=== PATIENT | male | born 1950 | race Two or more races ===

== ENCOUNTER 2016-10-14 16:40 | Emergency (ER) | payer OTHER ==
[~2016-10-14] VITALS: Ht 170.2 cm; Wt 68.0 kg
--- NOTE | 2016-10-14 17:20 | NUR ---
EKG DONE GIVEN TO MD ARTHUR
--- NOTE | 2016-10-14 17:20 | NUR ---
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 Pt has no complaints, states he slipped out of his wheelchair and fell on buttocks, denies pain, CP, SOB, dizziness, n/v, no distress noted.
[2016-10-14] MEDS ORDERED: IV NORMAL SALINE 500 ML BAG IV ONE (17:30)
[2016-10-14] MEDS ORDERED: PANT40TA4 PO (17:42)
[2016-10-14] MEDS ORDERED: ACET-2154 PO (17:42)
[2016-10-14] MEDS ORDERED: OXYC10TA49 PO (17:42)
[2016-10-14] MEDS ORDERED: DOCU-141 PO (17:42)
[2016-10-14] MEDS ORDERED: AMLO10TA2 PO (17:42)
[2016-10-14] MEDS ORDERED: MAGN400O6 PO (17:42)
[2016-10-14] MEDS ORDERED: FERR-58 PO (17:42)
[2016-10-14] MEDS ORDERED: HYDR-4077 PO (17:42)
[2016-10-14] MEDS ORDERED: ZOLP5TAB2 PO (17:42)
[2016-10-14] MEDS ORDERED: OXYC5TAB3 PO (17:42)
[2016-10-14] MEDS ORDERED: CHOL400T PO (17:42)
[2016-10-14 18:06] LABS: BASOPHILS # (AUTO) 0.1 K/uL (0.0-8.0); BASOPHILS % (AUTO) 0.5 % (0.0-2.0); EOSINOPHILS # (AUTO) 0.3 K/uL (0.0-0.7); EOSINOPHILS % (AUTO) 2.3 % (0.0-7.0); HEMATOCRIT 43.1 % (40-50); HEMOGLOBIN 14.4 G/DL (14.0-18.0); LYMPHOCYTES # (AUTO) 0.8 K/UL (0.8-4.8); LYMPHOCYTES % (AUTO) 5.4 % (20.5-51.5); MEAN CORPUSCULAR HEMOGLOBIN 30.2 UUG (27.0-31.0); MEAN CORPUSCULAR HGB CONC 34 g/dL (32.0-37.0); MEAN CORPUSCULAR VOLUME 89.9 FL (82.0-92.0); MONOCYTES # (AUTO) 0.7 K/UL (0.1-1.30); MONOCYTES % (AUTO) 5.1 % (0.0-11.0); NEUTROPHILS # (AUTO) 12.7 K/UL (1.8-8.9); NEUTROPHILS % (AUTO) 86.7 % (38.5-71.5); PLATELET COUNT (AUTO) 249 K/UL (150-450); RED BLOOD CELL COUNT(AUTO) 4.79 MIL/UL (4.7-6.1); WHITE BLOOD COUNT (AUTO) 14.6 K/UL (4.0-11.2)
[2016-10-14 18:08] LABS: CREATININE 1.2 mg/dL (0.6-1.3)
[2016-10-14 18:13] LABS: BILIRUBIN,DIRECT 0.2 mg/dL (0.0-0.2); BILIRUBIN,TOTAL 0.8 mg/dL (0.2-1.0); TOTAL PROTEIN, SERUM 8.7 g/dL (6.4-8.2)
--- NOTE | 2016-10-14 18:24 | NUR ---
Pt suddenly became very anxious, began taking off his ECG leads, stating he wanted to go back to his rehab. aware. Removed IV 20 g right AC intact, site okay, bandaged. Called for transport for d/c. ETA 2000
--- NOTE | 2016-10-14 18:37 | NUR ---
Dr. Angela Matamoros called, was informed that Dr. Johnson d/rigoberto'd pt, sending him back to [facility].
--- NOTE | 2016-10-14 19:30 | NUR ---
Received report from TABITHA Townsend. Assumed care of pt at this time. Pt resting in position of comfort for self. No obvious signs of distress, no complaints at this time. Pt awaiting S transport back to [facility].
--- NOTE | 2016-10-14 19:37 | NUR ---
Spoke with [facility] ETA 20 min.
--- NOTE | 2016-10-14 20:18 | NUR ---
Report called to PRABHU Viera at [facility]. RADHAS at bedside to transport pt to the facility. MD notified of pts blood pressure. Pt stable for transport per .
[2016-10-14 20:21] VITALS: BP 186/105
== END 2016-10-14 20:22 | disposition home or self-care (01) ==
LOC: ER 16:55
DX: I69.354 Hemiplegia and hemiparesis following cerebral infarction affecting left non-dominant side (principal); I10 Essential (primary) hypertension; J44.9 Chronic obstructive pulmonary disease, unspecified; F31.9 Bipolar disorder, unspecified
CPT/HCPCS: 36415; 70030-TC; 71010; 83690; 85025; 93005; A4663; J7040